=== PATIENT | male | born 1970 | race Caucasian/White ===

== ENCOUNTER → 2021-01-01 | Day surgery (SDC) | payer BC ==
[~2021-01-01] MED LIST: FENTANYL CITRATE/PF 100MCG/2 ML INJ ONE; FISH OIL 1,0001 EAC9 PO; GLUCAGON FOR INJ 1 MG VIAL ONE; HYOSCYAMINE SULFATE 0.5 MG/ML INJ ONE; LIDOCAINE HCL 2% LOCAL INJ 5 ML SDV VIAL INJ ONE; LIPITOR10 MG PO; MEGA MULTI FOR1 EAC1 PO; METAMUCIL PO; MIDAZOLAM HCL 5 MG/ML VIAL ONE; MOVE FREE JOIN1 EACH PO; PROPOFOL IV EMULSION 10 MG/ML 20 ML VIAL ONE; TESTO; TESTOSTERONE INJ; VITAMIN D3; Z.0.BYSTOLIC5 MG PO; [UNRECOGNIZED DRUG - OTHER] PO; [UNRECOGNIZED DRUG - OTHER] PO
[2021-01-01 10:43] VITALS: BP 116/64
== END | disposition home or self-care (01) ==
LOC: OR 06:57
PROVIDERS: ATTEND Internal Medicine Gastroenterology
DX: K29.70 Gastritis, unspecified, without bleeding (principal); D12.0 Benign neoplasm of cecum; K29.80 Duodenitis without bleeding; K57.92 Diverticulitis of intestine, part unspecified, without perforation or abscess without bleeding; K21.9 Gastro-esophageal reflux disease without esophagitis; K20.90 Esophagitis, unspecified without bleeding; K22.8 Other specified diseases of esophagus; K64.8 Other hemorrhoids; G47.33 Obstructive sleep apnea (adult) (pediatric); R05 Cough; I10 Essential (primary) hypertension; E78.5 Hyperlipidemia, unspecified; F95.9 Tic disorder, unspecified; N20.0 Calculus of kidney; F41.9 Anxiety disorder, unspecified; F17.210 Nicotine dependence, cigarettes, uncomplicated; Z88.1 Allergy status to other antibiotic agents; Z01.810 Encounter for preprocedural cardiovascular examination; Z01.812 Encounter for preprocedural laboratory examination; Z20.822 Contact with and (suspected) exposure to COVID-19; Z68.32 Body mass index [BMI] 32.0-32.9, adult
CPT/HCPCS: 43239; 45380; 45385; 93005; J1610; J1980; J2001; J2250; J2704; J3010; U0002; 45378; 45384

== ENCOUNTER → 2025-04-28 | Day surgery (SDC) | payer BC ==
[~2025-04-28] MED LIST changes: +BYSTOLIC10 MG PO; -FENTANYL CITRATE/PF 100MCG/2 ML INJ ONE; +FLOMAX0.4 MG PO; -HYOSCYAMINE SULFATE 0.5 MG/ML INJ ONE; +KETAMINE HCL INJ 50 MG/ML 10 ML VIAL ONE; +LAMICTAL100 MG PO; +METOCLOPRAMIDE HCL 10 MG/2ML VIAL ONE; +MIDAZOLAM HCL 2 MG/2 ML VIAL ONE; -MIDAZOLAM HCL 5 MG/ML VIAL ONE; +PROPOFOL IV EMULSION 50 ML IV ONE; +SERTRALINE HCL100 MG PO
[2025-04-28] MEDS: LACTATED RINGER'S 1,000 ML ONE (06:53)
[2025-04-28 09:46] VITALS: BP 133/78; PULSE 78; RESP 18; O2SAT 97
== END | disposition home or self-care (01) ==
LOC: OR 06:38
PROVIDERS: ATTEND Internal Medicine Gastroenterology
DX: K21.9 Gastro-esophageal reflux disease without esophagitis (principal); E78.00 Pure hypercholesterolemia, unspecified; G47.33 Obstructive sleep apnea (adult) (pediatric); E66.9 Obesity, unspecified; F41.9 Anxiety disorder, unspecified; F32.A Depression, unspecified; K57.90 Diverticulosis of intestine, part unspecified, without perforation or abscess without bleeding; K30 Functional dyspepsia; R14.0 Abdominal distension (gaseous); K64.8 Other hemorrhoids; K20.90 Esophagitis, unspecified without bleeding; K31.9 Disease of stomach and duodenum, unspecified; K29.50 Unspecified chronic gastritis without bleeding; Z12.11 Encounter for screening for malignant neoplasm of colon; Z88.1 Allergy status to other antibiotic agents; Z01.810 Encounter for preprocedural cardiovascular examination
CPT/HCPCS: 43239; 45378; 93005; J1610; J2003; J2250; J2470; J2704 ×2; J2765; J7121